=== PATIENT | female | born 1945 | race Caucasian/White ===

== ENCOUNTER 2021-02-01 18:02 | Emergency (ER) | payer MEDICARE, BC ==
[2021-02-01 19:59] LABS: HEMOGLOBIN 14.2 gm/dl (12.3-15.3); RED BLOOD COUNT 4.67 M/UL (4.00-5.10); WHITE BLOOD COUNT 4.2 K/UL (4.5-11.0)
[2021-02-01 20:18] LABS: BUN/CREATININE RATIO 18 (0-10)
== END 2021-02-01 23:50 | disposition home or self-care (01) ==
LOC: ER1 18:02
PROVIDERS: Physician Assistant Medical
DX: U07.1 COVID-19 (principal); Z23 Encounter for immunization; I10 Essential (primary) hypertension; M19.90 Unspecified osteoarthritis, unspecified site
CPT/HCPCS: 71045; 80053; 85025; 99284; M0243; U0002

== ENCOUNTER → 2021-04-13 | Outpatient (CLI) | payer MEDICARE, BC | LOC: KOH-I 15:10 | DX: M79.672 Pain in left foot (principal); M79.671 Pain in right foot; M19.071 Primary osteoarthritis, right ankle and foot | CPT/HCPCS: 73630 ==

== ENCOUNTER → 2021-04-30 | Outpatient (CLI) | payer MEDICARE, BC ==
[~2021-04-30] MED LIST: ALENDRONATE SOD70 MG PO; BIOTIN; CALCIUM 600 +1 EAC7 PO; CARBAMAZEPINE200 M1 PO; LOSARTAN POTASS50 MG PO; VITAMIN B12; VITAMIN C
[2021-04-30 11:25] LABS: HEMOGLOBIN 13.9 gm/dl (12.3-15.3); RED BLOOD COUNT 4.66 M/UL (4.00-5.10); WHITE BLOOD COUNT 7.6 K/UL (4.5-11.0)
[2021-04-30 11:40] LABS: BUN/CREATININE RATIO 18 (0-10)
== END ==
LOC: US 10:00 → OPSV2 11:00
PROVIDERS: Podiatrist Foot & Ankle Surgery
DX: Z01.818 Encounter for other preprocedural examination (principal); M79.604 Pain in right leg
CPT/HCPCS: 80048; 85027; 93005; 93926

== ENCOUNTER → 2021-05-05 | Day surgery (SDC) | payer MEDICARE, BC ==
[~2021-05-05] VITALS: Ht 162.6 cm; Wt 66.7 kg
== END | disposition home or self-care (01) ==
LOC: OR 07:30
DX: M20.11 Hallux valgus (acquired), right foot (principal); S93.304A Unspecified dislocation of right foot, initial encounter; M21.611 Bunion of right foot; M20.41 Other hammer toe(s) (acquired), right foot; M19.071 Primary osteoarthritis, right ankle and foot; I10 Essential (primary) hypertension; Z20.822 Contact with and (suspected) exposure to COVID-19; Z85.828 Personal history of other malignant neoplasm of skin; Z90.710 Acquired absence of both cervix and uterus; X58.XXXA Exposure to other specified factors, initial encounter; Y92.9 Unspecified place or not applicable
CPT/HCPCS: 73630; 76000; J0690; J1100; J1885; J2405; J2704; J2795; J3010; J3370; J7120

== ENCOUNTER → 2021-05-13 | Outpatient (CLI) | payer MEDICARE, BC | LOC: KOH-I 14:31 | DX: M79.671 Pain in right foot (principal) | CPT/HCPCS: 73630 ==

== ENCOUNTER → 2021-06-07 | Outpatient (CLI) | payer MEDICARE | LOC: KOH-I 14:21 | DX: M79.671 Pain in right foot (principal); Z98.890 Other specified postprocedural states | CPT/HCPCS: 73630 ==

== ENCOUNTER → 2021-07-27 | Outpatient (CLI) | payer MEDICARE | LOC: KOH-I 13:59 | DX: M79.671 Pain in right foot (principal) | CPT/HCPCS: 73630 ==

== ENCOUNTER → 2021-08-10 | Outpatient (CLI) | payer MEDICARE | LOC: KOH-I 13:24 | DX: M79.671 Pain in right foot (principal) | CPT/HCPCS: 73630 ==